=== PATIENT | female | born 1995 | race Two or more races ===

== ENCOUNTER 2019-06-04 11:14 | Emergency (ER) | payer MEDICAID ==
[~2019-06-04] VITALS: Ht 154.9 cm; Wt 63.6 kg
[2019-06-04 12:00] VITALS: BP 112/72
[2019-06-04 13:19] LABS: APPEARANCE,URINE CLOUDY (CLEAR); BILIRUBIN,URINE NEGATIVE (NEGATIVE); GLUCOSE, URINE (UA) NEGATIVE (NEGATIVE); KETONES,URINE NEGATIVE (NEGATIVE); LEUKOCYTE ESTERASE ,URINE SMALL (NEGATIVE); NITRATE,URINE NEGATIVE (NEGATIVE); OCCULT BLOOD,URINE LARGE (NEGATIVE); PROTEIN,URINE NEGATIVE (NEGATIVE); UROBILINOGEN,URINE 0.2 mg/dL (<=1.0)
[2019-06-04 13:34] LABS: BACTERIA,URINE Few /HPF (None Seen); SQUAMOUS EPITHELIAL CELL,UR Many /LPF (None Seen)
== END 2019-06-04 12:29 | disposition home or self-care (01) ==
LOC: EMS 11:16
DX: N39.0 Urinary tract infection, site not specified (principal); F17.210 Nicotine dependence, cigarettes, uncomplicated
CPT/HCPCS: 87086

== ENCOUNTER 2023-12-19 19:59 | Emergency (ER) | payer MEDICAID ==
[~2023-12-19] VITALS: Ht 154.9 cm; Wt 57.3 kg
[2023-12-19] MEDS: IBUPROFEN 800 MG TABLET PO ONE (22:37)
[2023-12-19] MEDS: ACETAMINOPHEN 500 MG TABLET PO ONE (22:38)
[2023-12-19] MEDS ORDERED: IBUP-1492 PO (22:52)
[2023-12-19] MEDS ORDERED: ACET-3385 PO (22:52)
[2023-12-19 23:16] VITALS: BP 110/62; PULSE 70; RESP 18; TEMP 98.6
== END 2023-12-19 23:24 | disposition home or self-care (01) ==
LOC: EMS 20:09
DX: S93.601A Unspecified sprain of right foot, initial encounter (principal); V00.848A Other accident with standing micro-mobility pedestrian conveyance, initial encounter; X58.XXXA Exposure to other specified factors, initial encounter; Y93.89 Activity, other specified; Y92.89 Other specified places as the place of occurrence of the external cause; Y99.8 Other external cause status
CPT/HCPCS: 99283

== ENCOUNTER 2024-01-01 00:41 | Emergency (ER) | payer MEDICAID ==
[~2024-01-01] VITALS: Ht 154.9 cm; Wt 57.7 kg
[~2024-01-01 00:41] MED LIST: ACET-3385 PO; IBUP-1492 PO
[2024-01-01 00:46] VITALS: BP 110/58; PULSE 87; RESP 18; TEMP 97.7
== END 2024-01-01 02:30 | disposition home or self-care (01) ==
LOC: EMS 00:42
DX: S93.601A Unspecified sprain of right foot, initial encounter (principal); W01.0XXA Fall on same level from slipping, tripping and stumbling without subsequent striking against object, initial encounter; Y93.89 Activity, other specified; Y92.89 Other specified places as the place of occurrence of the external cause; Y99.8 Other external cause status
CPT/HCPCS: 99283